=== PATIENT | male | born 1965 | race Caucasian/White ===

== ENCOUNTER 2021-07-16 09:19 | Emergency (ER) | payer MEDICAID ==
[~2021-07-16] VITALS: Ht 175.3 cm; Wt 79.5 kg
[2021-07-16] MEDS ORDERED: ACETAMINOPHEN 500 MG TABLET PO ONE (09:30)
[2021-07-16 10:04] LABS: COVID AG,FIA SOURCE NASOPHARYNGEAL
[2021-07-16 10:23] LABS: INFLUENZA TYPE A NEGATIVE FOR TYPE A (NEGATIVE); INFLUENZA TYPE B NEGATIVE FOR TYPE B (NEGATIVE)
[2021-07-16] MEDS ORDERED: AZITHROMYCIN 500 MG TABLET PO ONE (11:00)
[2021-07-16] MEDS ORDERED: AZIT-84 PO (11:14)
[2021-07-16 12:50] VITALS: BP 132/79
== END 2021-07-16 13:11 | disposition home or self-care (01) ==
LOC: EMS 09:19
DX: S82.001A Unspecified fracture of right patella, initial encounter for closed fracture (principal); J18.9 Pneumonia, unspecified organism; X58.XXXA Exposure to other specified factors, initial encounter; Y93.89 Activity, other specified; Y92.89 Other specified places as the place of occurrence of the external cause; Y99.8 Other external cause status; Z20.822 Contact with and (suspected) exposure to COVID-19
CPT/HCPCS: 70450; 70486; 71045; 72125; 73562; 87426; 87804; 99285; Q9967